=== PATIENT | female | born 1945 | race Caucasian/White ===

== ENCOUNTER 2018-10-18 18:02 | Emergency (ER) | payer MEDICARE ==
[~2018-10-18] VITALS: Ht 167.6 cm; Wt 70.3 kg
--- NOTE | 2018-10-18 18:25 | PHYS DOC ---
Adult General HPI HPI Patient is a 73 year old female who presents with palpitations. She reports feeling a fast heart rate that lasted for just a couple of minutes prior to calling EMS. It resolved. Patient is concerned that may be anxiety since she has had this before. She gets anxious this time of year due to multiple friends having during this time of year. No suicidal or homicidal ideation. No chest pain. No difficulty breathing. No worsening of symptoms with ambulation in fact they improved with ambulating around her home and to get the phone to call 911. No nausea, vomiting, or diaphoresis. There has been no numbness, tingling, weakness. [] Review of Systems Review of Systems Constitutional: Denies fever or chills [] Eyes: Denies change in visual acuity, redness, or eye pain [] HENT: Denies nasal congestion or sore throat [] Respiratory: Denies cough or shortness of breath [] Cardiovascular: No additional information not addressed in HPI [] GI: Denies abdominal pain, nausea, vomiting, bloody stools or diarrhea [] : Denies dysuria or hematuria [] Musculoskeletal: Denies back pain or joint pain [] Integument: Denies rash or skin lesions [] Neurologic: Denies headache, focal weakness or sensory changes [] Endocrine: Denies polyuria or polydipsia [] All other systems were reviewed and found to be within normal limits, except as documented in this note. Physical Exam Physical Exam Constitutional: Well developed, well nourished, no acute distress, non-toxic appearance. [] HENT: Normocephalic, atraumatic, bilateral external ears normal, oropharynx moist, no oral exudates, nose normal. [] Eyes: PERRLA, EOMI, conjunctiva normal, no discharge. [] Neck: Normal range of motion, no tenderness, supple, no stridor. [] Cardiovascular:Heart rate regular rhythm, no murmur [] Lungs & Thorax: Bilateral breath sounds clear to auscultation [] Abdomen: Bowel sounds normal, soft, no tenderness, no masses, no pulsatile masses. [] Skin: Warm, dry, no erythema, no rash. [] Back: No tenderness, no CVA tenderness. [] Extremities: No tenderness, no cyanosis, no clubbing, ROM intact, no edema. [] Neurologic: Alert and oriented X 3, normal motor function, normal sensory function, no focal deficits noted. [] Psychologic: Affect normal, judgement normal, mood normal. [] Current Patient Data Vital Signs Vital Signs Date Time Temp Pulse Resp B/P (MAP) Pulse Ox O2 Delivery O2 Flow Rate FiO2 10/18/18 19:00 82 20 182/84 (116) 96 Room Air 10/18/18 18:02 97.8 97.8 Lab Values Laboratory Tests Test 10/18/18 18:21 10/18/18 18:28 Urine Collection Type Unknown Urine Color Yellow Urine Clarity Clear Urine pH 6.0 Urine Specific [place] 1.010 Urine Protein Negative mg/dL (NEG-TRACE) Urine Glucose (UA) Negative mg/dL (NEG) Urine Ketones (Stick) Negative mg/dL (NEG) Urine Blood Trace (NEG) Urine Nitrite Negative (NEG) Urine Bilirubin Negative (NEG) Urine Urobilinogen Dipstick 0.2 mg/dL (0.2 mg/dL) Urine Leukocyte Esterase Negative (NEG) Urine RBC 1-2 /HPF (0-2) Urine WBC Rare /HPF (0-4) Urine Squamous Epithelial Cells Few /LPF Urine Bacteria 0 /HPF (0-FEW) White Blood Count 5.2 x10^3/uL (4.0-11.0) Red Blood Count 4.11 x10^6/uL (3.50-5.40) Hemoglobin 12.6 g/dL (12.0-15.5) Hematocrit 38.5 % (36.0-47.0) Mean Corpuscular Volume 94 fL (79-100) Mean Corpuscular Hemoglobin 31 pg (25-35) Mean Corpuscular Hemoglobin Concent 33 g/dL (31-37) Red Cell Distribution Width 14.0 % (11.5-14.5) Platelet Count 281 x10^3/uL (140-400) Neutrophils (%) (Auto) 52 % (31-73) Lymphocytes (%) (Auto) 35 % (24-48) Monocytes (%) (Auto) 8 % (0-9) Eosinophils (%) (Auto) 5 % (0-3) H Basophils (%) (Auto) 1 % (0-3) Neutrophils # (Auto) 2.7 x10^3uL (1.8-7.7) Lymphocytes # (Auto) 1.8 x10^3/uL (1.0-4.8) Monocytes # (Auto) 0.4 x10^3/uL (0.0-1.1) Eosinophils # (Auto) 0.2 x10^3/uL (0.0-0.7) Basophils # (Auto) 0.0 x10^3/uL (0.0-0.2) Prothrombin Time 12.1 SEC (11.7-14.0) Prothrombin Time INR 0.9 (0.8-1.1) Sodium Level 142 mmol/L (136-145) Potassium Level 3.6 mmol/L (3.5-5.1) Chloride Level 104 mmol/L (98-107) Carbon Dioxide Level 29 mmol/L (21-32) Anion Gap 9 (6-14) Blood Urea Nitrogen 21 mg/dL (7-20) H Creatinine 0.8 mg/dL (0.6-1.0) Estimated GFR (Cockcroft-Gault) 70.5 BUN/Creatinine Ratio 26 (6-20) H Glucose Level 111 mg/dL (70-99) H Calcium Level 9.2 mg/dL (8.5-10.1) Magnesium Level 2.0 mg/dL (1.8-2.4) Total Bilirubin 0.3 mg/dL (0.2-1.0) Aspartate Amino Transferase (AST) 23 U/L (15-37) Alanine Aminotransferase (ALT) 23 U/L (14-59) Alkaline Phosphatase 83 U/L (46-116) Troponin I Quantitative < 0.017 ng/mL (0.000-0.055) SM-Fnx-G-Type Natriuretic Peptide 112 pg/mL (0-124) Total Protein 7.8 g/dL (6.4-8.2) Albumin 3.9 g/dL (3.4-5.0) Albumin/Globulin Ratio 1.0 (1.0-1.7) Lipase 142 U/L (73-393) Thyroid Stimulating Hormone (TSH) 5.012 uIU/mL (0.358-3.74) H Laboratory Tests 10/18/18 18:28 Laboratory Tests 10/18/18 18:28 EKG EKG EKG shows a sinus rhythm at 95 bpm, leftward axis at -14�, QTC 438 ms, no ST elevations, nonspecific ST-T wave changes. This was interpreted by me at 1821.[] Radiology/Procedures Radiology/Procedures Chest x-ray shows no acute infiltrate, no effusion, no pneumothorax[] Course & Med Decision Making Course & Med Decision Making Pertinent Labs and Imaging studies reviewed. (See chart for details) ED course: Patient arrived, was placed in bed, in tolerated exam well. She remained in good condition during her emergency department stay. After the return of the lab and imaging studies, these were discussed with the patient who voiced understanding. All questions were answered. Medical decision making: There does not appear to be any evidence of an acute coronary syndrome, no stroke syndrome, no urinary tract infection, no significant electrolyte abnormalities. Patient's TSH is noted to be elevated consistent with potential hypothyroid state. Since she is not clinically significantly hypothyroid, no evidence of myxedema coma, we will have patient follow up with her primary care physician for long-term management.[] Dragon Disclaimer Dragon Disclaimer This electronic medical record was generated, in whole or in part, using a voice recognition dictation system. Departure Departure Impression: Primary Impression: Palpitations Additional Impression: Elevated TSH Disposition: HOME, SELF-CARE Admitting Physician: Other Condition: IMPROVED Referrals: GARRICK HENNESSY MD (PCP) Follow-up in 2 days Patient Instructions: Palpitations Additional Instructions: Follow-up with your regular doctor in 2 days. Your TSH�a study of your thyroid� was elevated indicating you may need some thyroid supplementation. Your primary care physician is better equipped to manage this on a long-term basis. Return to the ER if the palpitations recur, or any other concerns. Problem Qualifiers SHERIF CAMACHO DO Oct 18, 2018 18:25
[2018-10-18 18:43] LABS: BASO % 1 % (0-3); EOS # 0.2 x10^3/uL (0.0-0.7); EOS % 5 % (0-3); HEMATOCRIT 38.5 % (36.0-47.0); HEMOGLOBIN 12.6 g/dL (12.0-15.5); LYMPH # 1.8 x10^3/uL (1.0-4.8); LYMPH % 35 % (24-48); MEAN CORPUSCULAR HEMOGLOBIN 31 pg (25-35); MEAN CORPUSCULAR HGB CONC 33 g/dL (31-37); MEAN CORPUSCULAR VOLUME 94 fL (79-100); MONO # 0.4 x10^3/uL (0.0-1.1); MONO % 8 % (0-9); NEUT # 2.7 x10^3uL (1.8-7.7); NEUT % 52 % (31-73); PLATELET COUNT 281 x10^3/uL (140-400); RED BLOOD COUNT 4.11 x10^6/uL (3.50-5.40); WHITE BLOOD COUNT 5.2 x10^3/uL (4.0-11.0)
[2018-10-18 18:44] LABS: BILIRUBIN,URINE NEGATIVE (NEG); CLARITY,URINE CLEAR; COLOR,URINE YELLOW; NITRITE,URINE NEGATIVE (NEG); PROTEIN,URINE NEGATIVE (NEG-TRACE); UROBILINOGEN,URINE 0.2 mg/dL (0.2 mg/dL)
[2018-10-18 18:48] LABS: BACTERIA,URINE 0 /HPF (0-FEW); SQUAMOUS EPITHELIAL CELL,UR FEW /LPF; WBC,URINE RARE /HPF (0-4)
[2018-10-18 18:51] LABS: PROTHROMBIN TIME PATIENT 12.1 SEC (11.7-14.0)
[2018-10-18 18:53] LABS: CALCIUM 9.2 mg/dL (8.5-10.1); CREATININE 0.8 mg/dL (0.6-1.0); GFR 70.5; POTASSIUM 3.6 mmol/L (3.5-5.1)
[2018-10-18 18:58] LABS: ALBUMIN 3.9 g/dL (3.4-5.0); TOTAL BILIRUBIN 0.3 mg/dL (0.2-1.0); TOTAL PROTEIN 7.8 g/dL (6.4-8.2)
[2018-10-18 19:14] VITALS: BP 183/89
--- NOTE | 2018-10-19 01:29 | RAD ---
PORTABLE CHEST 1V History: PALPITATION Comparison: None. Findings: AP portable view of the chest is submitted. No dependent pleural fluid or pneumothorax. Heart size is within normal limits given technique. There is atherosclerotic calcification near the aortic arch. There is subtle right suprahilar opacity otherwise difficult to characterize. Impression: 1. There is some subtle right suprahilar opacity, could be further characterized with 2 view chest or nonemergent CT. Electronically signed by: Bimal Johnson MD (10/18/2018 11:29 PM) [facility]
--- NOTE | 2018-10-19 11:05 | EKG ---
[facility] [address] [place] [address] Test Date: 2018-10-18 Test Time: 18:13:30 Pat Name: CÉSAR HOUSER Department: Room: Gender: F Medical Tech: : [id number] Requested By: SHERIF CAMACHO Order Number: [id number] Reading MD: Sonu Eduardo MD Measurements Intervals [place] Rate: 95 P: 41 CO: 152 QRS: -14 QRSD: 94 T: 87 QT: 346 QTc: 438 Interpretive Statements SINUS RHYTHM LEFTWARD AXIS QRS(T) CONTOUR ABNORMALITY CONSIDER ANTEROSEPTAL MYOCARDIAL DAMAGE CONSISTENT WITH INFERIOR INFARCT PROBABLY OLD T ABNORMALITY IN HIGH LATERAL LEADS ABNORMAL ECG Electronically Signed On 10-21-2018 13:50:10 TAX ADJUSTER by Sonu Eduardo MD
== END 2018-10-18 19:35 ==
LOC: ER 18:02
DX: R00.2 Palpitations (principal); R94.6 Abnormal results of thyroid function studies; R00.0 Tachycardia, unspecified
CPT/HCPCS: 36415; 71045; 80053; 81001; 83690; 83735; 83880; 84443; 84484; 85025; 85610; 93005; 99284-25